=== PATIENT | female | born 1995 | race Caucasian/White ===

== ENCOUNTER 2019-04-03 06:31 | Emergency (ER) | payer BC, OTHER ==
[~2019-04-03] VITALS: Ht 152.4 cm; Wt 49.5 kg
[~2019-04-03 06:31] MED LIST: PREN1TAB9
[2019-04-03 06:35] VITALS: BP 123/60; PULSE 75; RESP 18; Ht 152.4 cm; Wt 49.5 kg
[2019-04-03] MEDS ORDERED: ACETAMINOPHEN 500 MG TAB PO STA (07:28)
--- NOTE | 2019-04-03 07:47 | ERD ---
ER Documentation Chief Complaint Chief Complaint R.side flank pain x last night denies pain with urination HPI 24-year-old female presents with complaint of right sided flank pain for the past 1/2 months. States that she was just referred for ultrasound by primary. Patient is unsure as to what the etiology is and states that the doctors have not diagnosed her with anything as they are unsure as well. Denies any fevers, chills, dysuria, hematuria, urinary retention, nausea, vomiting, diarrhea, abdominal pain. ROS All systems reviewed and are negative except as per history of present illness. Medications Home Meds Active Scripts Acetaminophen* (Tylophen*) 500 Mg Capsule, 2 CAP PO Q8H PRN for PAIN AND OR ELEVATED TEMP, #20 CAP Prov:DECLAN REYES 04/03/19 Reported Medications Vits W-Ca,Fe,Fa(<1MG) ( #2) 1 Tab Tablet 05/16/13 Allergies Allergies: Coded Allergies: ibuprofen (Verified Allergy, Unknown, 04/03/19) PMhx/Soc History of Surgery: Yes (LEFT ANKLE) Anesthesia Reaction: No Hx Neurological Disorder: No Hx Respiratory Disorders: No Hx Cardiac Disorders: No Hx Psychiatric Problems: No Hx Miscellaneous Medical Probl: No Hx Alcohol Use: Yes Hx Substance Use: No Hx Tobacco Use: No Smoking Status: Never smoker FmHx Family History: No diabetes, No coronary disease, No other Physical Exam Vitals Vital Signs Date Temp Pulse Resp B/P (MAP) Pulse Ox O2 O2 Flow FiO2 Time Delivery Rate 04/03/19 97.8 75 18 123/60 95 06:35 (81) Physical Exam Const: No acute distress Head: Atraumatic Eyes: Normal Conjunctiva ENT: Normal External Ears, Nose and Mouth. Neck: Full range of motion. No meningismus. Resp: Clear to auscultation bilaterally Cardio: Regular rate and rhythm, no murmurs Abd: Soft, non tender, non distended. Normal bowel sounds Skin: No petechiae or rashes Back: No midline or flank tenderness Ext: No cyanosis, or edema Neur: Awake and alert Psych: Normal Mood and Affect Result Diagram: 04/03/19 0742 04/03/19 0742 Results 24 hrs Laboratory Tests Test 04/03/19 07:33 04/03/19 07:42 04/03/19 07:43 Urine Color STRAW Urine Clarity CLEAR Urine pH 7.0 Urine Specific [place] 1.004 Urine Ketones NEGATIVE mg/dL Urine Nitrite NEGATIVE mg/dL Urine Bilirubin NEGATIVE mg/dL Urine Urobilinogen NEGATIVE mg/dL Urine Leukocyte Esterase NEGATIVE Mary/ul Urine Microscopic RBC 1 /HPF Urine Microscopic WBC 1 /HPF Urine Squamous Epithelial Cells FEW /HPF Urine Hemoglobin 2+ mg/dL Urine Glucose NEGATIVE mg/dL Urine Total Protein NEGATIVE mg/dl White Blood Count 7.3 10^3/ul Red Blood Count 4.16 10^6/ul Hemoglobin 12.5 g/dl Hematocrit 38.3 % Mean Corpuscular Volume 92.1 fl Mean Corpuscular Hemoglobin 30.0 pg Mean Corpuscular 32.6 g/dl Hemoglobin Concent Red Cell Distribution Width 13.0 % Platelet Count 328 10^3/UL Mean Platelet Volume 9.8 fl Immature Granulocytes % 0.300 % Neutrophils % 53.8 % Lymphocytes % 37.4 % Monocytes % 7.3 % Eosinophils % 0.5 % Basophils % 0.7 % Nucleated Red Blood Cells % 0.0 /100WBC Immature Granulocytes # 0.020 10^3/ul Neutrophils # 3.9 10^3/ul Lymphocytes # 2.7 10^3/ul Monocytes # 0.5 10^3/ul Eosinophils # 0.0 10^3/ul Basophils # 0.1 10^3/ul Nucleated Red Blood Cells # 0.0 10^3/ul Sodium Level 141 mmol/L Potassium Level 4.0 mmol/L Chloride Level 107 mmol/L Carbon Dioxide Level 24 mmol/L Anion Gap 10 Blood Urea Nitrogen 6 mg/dl Creatinine 0.54 mg/dl Est Glomerular Filtrat > 60 mL/min Rate mL/min Glucose Level 95 mg/dl Calcium Level 9.7 mg/dl Total Bilirubin 0.9 mg/dl Direct Bilirubin 0.00 mg/dl Indirect Bilirubin 0.9 mg/dl Aspartate Amino 19 IU/L Transf (AST/SGOT) Alanine 22 IU/L Aminotransferase (ALT/SGPT) Alkaline Phosphatase 70 IU/L Total Protein 7.8 g/dl Albumin 4.4 g/dl Globulin 3.40 g/dl Albumin/Globulin Ratio 1.29 Lipase 46 U/L POC Beta HCG, Qualitative NEGATIVE Current Medications Medications Dose Sig/Ene Start Time Status Last (Trade) Ordered Route PRN Stop Time Admin Dose Reason Admin 500 mg ONCE STAT 04/03/19 DC 04/03/19 Acetaminophen PO 07:28 07:41 (Tylenol 04/03/19 07:29 Tab) Procedures/MDM MDM: Given patient's complaint of flank pain that there is concern for possible nephrolithiasis. Therefore CT was ordered and results within normal limits. In addition patient's UA was normal so I do not think patient has pyelonephritis. I have low suspicion for acute coronary syndrome, AAA, mesenteric ischemia, lower lobe pneumonia, DKA, bowel perforation, cholecystitis, choledocholithiasis, ascending cholangitis, hepatic abscess, pancreatitis, PUD, splenic rupture, diverticulitis, pyelonephritis, nephrolithiasis, appendicitis, , ectopic , PID, ovarian torsion or tubo-ovarian abscess. At this time, patient is stable for discharge and outpatient management. I have instructed the patient to follow-up with his/her primary care physician in 1-2 days. I have discussed with the patient the possibility of needing to see a specialist for further workup and imaging studies if symptoms persist. I have instructed the patient to promptly return to the ER for any new or worsening symptoms including but not limited to increased pain, fever, nausea, vomiting, weakness or LOC. The patient and/or family expressed understanding of and agreement with this plan. All questions were answered. Home care instructions were provided. DISCLAIMER: Inadvertent spelling and grammatical errors are likely due to EHR/dictation software use and do not reflect on the overall quality of patient care. Also, please note that the electronic time recorded on this note does not necessarily reflect the actual time of the patient encounter. Departure Diagnosis: Primary Impression: Flank pain Condition: DECLAN Rhodes Apr 03, 2019 07:47
[2019-04-03] MEDS ORDERED: ACET500C5 PO (09:00)
== END 2019-04-03 09:25 | disposition home or self-care (01) ==
LOC: FTE 06:31
DX: R10.9 Unspecified abdominal pain (principal)
CPT/HCPCS: 74176; 80053; 81001; 81025; 83690; 85025; 87086; Z7610; 36415